=== PATIENT | female | born 1970 | race Caucasian/White ===

== ENCOUNTER 2017-09-20 09:17 | Emergency (ER) | payer MEDICARE, MEDICAID ==
[~2017-09-20] VITALS: Ht 157.5 cm; Wt 67.0 kg
[2017-09-20 09:48] LABS: URINE HCG NEGATIVE (NEG)
[2017-09-20 09:49] LABS: CLARITY,URINE SLIGHTLY CLOUDY (Clear); COLOR,URINE YELLOW (Yellow); GLUCOSE, URINE NEGATIVE (Neg); KETONES,URINE NEGATIVE (Neg); LEUKOCYTE ESTERASE ,URINE LARGE (Neg); NITRITES, URINE NEGATIVE (Neg); OCCULT BLOOD,URINE TRACE-INTACT (Neg); PROTEIN,URINE NEGATIVE (Neg); UROBILINOGEN,URINE 0.2 E.U/dL (0.2-1.0)
[2017-09-20 09:54] LABS: UA COLLECTION TYPE CLN CATCH MIDSTREAM
[2017-09-20 09:59] LABS: BACTERIA,URINE 4+ /HPF (Neg); RBC,URINE 0-2 /HPF (0-2); SQUAMOUS EPITHELIAL CELL,UR MODERATE /LPF (FEW); WBC,URINE TNTC /HPF (0-4)
[2017-09-20] MEDS ORDERED: NITR100C6 PO (10:04)
[2017-09-20] MEDS ORDERED: PHEN-824 PO (10:18)
[2017-09-20 10:24] VITALS: BP 126/83
== END 2017-09-20 10:22 | disposition home or self-care (01) ==
LOC: EDSEX 09:17 → ER 09:17
DX: N39.0 Urinary tract infection, site not specified (principal); Z88.0 Allergy status to penicillin; Z88.2 Allergy status to sulfonamides; Z79.899 Other long term (current) drug therapy
CPT/HCPCS: 81001; 81025; 87088; 99284